=== PATIENT | male | born 1985 | race Caucasian/White ===

== ENCOUNTER → 2021-04-29 | Outpatient (CLI) | payer OTHER ==
--- NOTE | 2021-04-30 08:42 | KCIC ---
EXAMINATION: MRI LEFT SHOULDER WITHOUT IV CONTRAST CLINICAL HISTORY: Chronic posterior left shoulder and inferior/lateral scapula following overuse evid ent working out in 2017. TECHNIQUE: Multiplanar multisequential images obtained through the shoulder without intravenous contr ast. COMPARISON: None FINDINGS: TENDONS: - Supraspinatus: Within normal limits. - Infraspinatus: Within normal limits. - Subscapularis: Within normal limits. - Teres Minor: Within normal limits. - Biceps Tendon: Long head biceps tendon intact and appropriately located. MUSCLES: Muscle bulk and signal intensity are within normal limits. LABRUM: No discrete tear. GLENOHUMERAL JOINT: - Joint Fluid: No joint effusion or synovitis. - Cartilage: Within normal limits. ACROMIOCLAVICULAR JOINT: Mild degenerative changes. BONES/MARROW: No evidence of acute fracture or suspicious marrow replacing process. IMPRESSION: Mild acromioclavicular degenerative changes, otherwise unremarkable exam. No full-thickness rotator cuff tear. No discrete labral tear. Electronically signed by: Jeremy Miller DO (04/30/2021 8:39 AM) [id number]
== END ==
LOC: KCIC MRI 14:27
PROVIDERS: ATTEND Family Medicine
DX: M19.012 Primary osteoarthritis, left shoulder (principal); M25.512 Pain in left shoulder
CPT/HCPCS: 73221

== ENCOUNTER → 2021-08-04 | Outpatient (CLI) | payer OTHER ==
[~2021-08-04] MED LIST: GADOTERATE 5 MMOL/10ML VIAL. INT ART ONE; IOHEXOL 300 MG/ML 50 ML VIAL. INT ART ONE; LIDOCAINE 1% Multi-Dose 20 ML VIAL. ID ONE
--- NOTE | 2021-08-04 16:36 | KCIC ---
EXAM: Fluoroscopically guided left glenohumeral joint injection for MRI arthrogram INDICATION: Chronic pain, superior labral tear. Left shoulder COMPARISON: None TECHNIQUE/FINDINGS: The purpose of the procedure and risks including infection, bleeding, contrast reaction, and pain wer e discussed with the patient. Informed consent was obtained. A timeout was performed. After obtaining consent, the patient was placed supine on the fluoroscopy table with the left shoulde r externally rotated. The skin overlying the left shoulder was marked, sterilized and draped. Super ficial and deep soft tissues were anesthetized with 1% lidocaine. Utilizing fluoroscopic guidance, a 22-gauge 1.5 inch needle was advanced into the joint. Intraarticular position was confirmed with inj ection of a small amount of iodinated contrast. Subsequently, 13 mL of a solution containing the fol lowing items was instilled into the joint: 10 mL of 1% lidocaine, 5 mL of sterile saline, 5 mL of no n-ionic iodinated contrast, and 0.1 mL of gadolinium. At the end of the procedure, the needle was removed. The overlying skin was cleansed and covered wit h a bandaid. The patient tolerated the procedure well and was free of immediate complications. The p atient was transferred for the MR portion of the exam in stable condition. Total fluoroscopic time: 11 seconds. 2 fluoroscopic images saved. IMPRESSION: Technically successful left glenohumeral joint injection for the purposes of MR arthrogr am. Electronically signed by: Sheryl Mccullough MD (08/04/2021 4:33 PM) [id number]
--- NOTE | 2021-08-05 09:08 | KCIC ---
EXAM: MRI LEFT SHOULDER WITH CONTRAST INDICATION: Superior glenoid labrum lesion COMPARISON: MRI left shoulder without contrast 04/29/2021 TECHNIQUE: Multiplanar, multisequence imaging of the left shoulder after intra-articular injection of contrast, performed separately. FINDINGS: ROTATOR CUFF: The supraspinatus, infraspinatus, subscapularis, and teres minor tendons are intact. No rotator cuff muscle atrophy or edema. LABRUM: The labrum is intact. BICEPS TENDON: The biceps tendon is intact and located. ACROMIOCLAVICULAR JOINT: Unchanged mild acromioclavicular degenerative joint disease with small subch ondral cysts. Type I acromion. GLENOHUMERAL JOINT: Articular cartilage is intact. No acute fracture or marrow signal abnormality. Al ignment is normal. OTHER: Contrast distends the joint. No fluid or contrast in the subacromial-subdeltoid bursa. IMPRESSION: 1. Unchanged mild acromioclavicular degenerative joint disease. 2. No labral tear or rotator cuff tear. Electronically signed by: Sheryl Mccullough MD (08/05/2021 9:05 AM) [id number]
== END | disposition home or self-care (01) ==
LOC: KCIC 14:21
PROVIDERS: ATTEND Physician Assistant
DX: S43.432A Superior glenoid labrum lesion of left shoulder, initial encounter (principal); G89.29 Other chronic pain; M19.012 Primary osteoarthritis, left shoulder; Z79.899 Other long term (current) drug therapy; X58.XXXA Exposure to other specified factors, initial encounter; Y93.89 Activity, other specified; Y92.89 Other specified places as the place of occurrence of the external cause; Y99.8 Other external cause status
CPT/HCPCS: 23350; 73222; 77002; A9575; J3490; Q9967